=== PATIENT | female | born 1990 | race Two or more races ===

== ENCOUNTER 2024-10-03 21:30 | Emergency (ER) | payer MEDICAID, SELFPAY ==
[2024-10-03 21:31] VITALS: BMI 31.8
[2024-10-03 22:07] VITALS: BP 110/75; PULSE 73; RESP 20; TEMP 37.3; O2SAT 98
--- NOTE | 2024-10-03 22:13 | XR_ITS ---
Examination: Abdomen sonogram, Limited Date and time of exam: October 03, 2024 10:39 PM INDICATIONS: Abdominal pain beginning this morning Technique: Real-time carrillo scale transabdominal sonographic images of the upper abdomen obtained. Findings: Absent gallbladder Normal common bile duct 0.3 cm Pancreatic head 1.9 cm Liver 14.9 cm no focal liver lesions Normal hepatopedal portal venous flow Patent IVC IMPRESSION: Normal common bile duct Normal liver
--- NOTE | 2024-10-03 22:13 | PD.EDRME ---
Rapid Medical Screening Exam E Arrival date/time: 10/03/24 21:30 this is a 34-year-old female that comes in with complaints of sudden abdominal pain to the right upper quadrant patient states she was recently eating healthy because she was told her cholesterol was over 450 and her triglycerides were very elevated. Patient was told by her primary provider that if she started having bad abdominal pain that she needed to come to the emergency room. Patient states that she just finished eating at a buffet. Patient states she got a sudden onset of abdominal pain. Patient also complains of nausea no vomiting. Patient denies diarrhea. Patient also complains of abdominal cramping. Patient's last menstrual period was September 28, 2024. Patient has a history of gallstones I have greeted and performed a focused initial assessment of this patient. Initial appropriate labs ordered at this time. A comprehensive ED assessment and evaluation of the patient and analysis of all test and completion of medical decision making process will be conducted by additional ED provider. Chief Complaint: Abdominal Pain Time Seen by Provider: 10/03/24 22:08 Vital signs: Vital Signs Temperature 99.2 F 10/03/24 22:07 Pulse Rate 73 10/03/24 22:07 Respiratory Rate 20 10/03/24 22:07 Blood Pressure 110/75 10/03/24 22:07 Pulse Oximetry (%) 98 10/03/24 22:07 Oxygen Delivery Method Room Air 10/03/24 22:07
[2024-10-03 22:45] LABS: Collection Type, Urine Voided
[2024-10-03 22:50] LABS: Basophils # (Auto) 0.1 Thou/mm3 (0.0-0.2); Basophils % (Auto) 1 % (0-2.5); Eosinophils # (Auto) 0.3 Thou/mm3 (0.0-0.5); Eosinophils % (Auto) 4 % (0-10); Hematocrit 39.1 % (36.0-46.0); Hemoglobin 13.1 g/dL (12.0-16.0); Immature Granulocytes % (Auto) 0 % (0-0); Immature Granulocytes Auto 0.02 Thou/mm3 (0.00-0.00); Lymphocytes # (Auto) 2.2 Thou/mm3 (1.0-4.8); Lymphocytes % (Auto) 29 % (10-50); Mean Corpuscular HGB Conc 33.5 g/dl (31.0-37.0); Mean Corpuscular Volume 87 fL (80-100); Monocytes # (Auto) 0.5 Thou/mm3 (0.0-0.8); Monocytes % (Auto) 7 % (0-12); Neutrophils # (Auto) 4.6 Thou/mm3 (1.8-7.7); Neutrophils % (Auto) 59 % (37-80); Nucleated Red Blood Cell % 0 /100 WBC (0); Platelet Count 197 Thou/mm3 (140-440); Red Blood Count 4.52 Miln/mm3 (4.00-5.20); White Blood Count 7.8 Thou/mm3 (3.6-11.0)
--- NOTE | 2024-10-03 22:50 | XR_ITS ---
Examination: CT abdomen and pelvis without contrast. Coronal 3-D reconstructions. Sagittal 2-D reconstructions. Date and time of exam:2024, 12:59 AM Comparison April 19, 2020 INDICATIONS: right flank pain beginning today CTDI: vol (mGy): 9 DLP: (mGycm): 474 Technique: Axial images of the abdomen have been obtained, 3 mm slice thickness Intravenous contrast material has not been administered. Low dose protocols were performed. One or more of the following dose reduction techniques were used; automated exposure control, adjustment of the mA and/or KV according to patient size, use of iterative reconstruction technique. Findings: No focal liver or splenic lesions Absent gallbladder No renal or ureteral calculi, no hydronephrosis Fat-containing umbilical hernia. Normal appendix. No bladder mass or bladder calculi Intact osseous structures IMPRESSION: No renal or ureteral calculi Normal appendix No bladder mass or bladder calculi
[2024-10-03 22:57] LABS: Bacteria,Urine Rare; Bilirubin,Urine Negative (Negative); Blood,Urine 2+ (Negative); Clarity,Urine Turbid (Clear/Hazy); Color,Urine Yellow (Lt Yel-Yel); Culture Indicated,Urine Not Indicated; Glucose, Urine Negative (Negative); Ketones,Urine Trace (Negative); Leukocyte Esterase,Urine Negative (Negative); Nitrite,Urine Negative (Negative); PH,Urine 7.5 (5.0-7.0); Protein,Urine 1+ (Neg - Trace); RBC,Urine 110 /hpf (0-3); Specific Gravity,Urine 1.038 (1.001-1.035); Squamous Epithelial Cell,Urine 8 /hpf (0-5); WBC,Urine 7 /hpf (0-5)
[2024-10-03 23:05] LABS: HCG,Qualitative Serum Negative
[2024-10-03 23:06] LABS: Alanine Aminotransferase 68 U/L (10-49); Albumin, Serum 4.8 gm/dL (3.5-5.0); Albumin/Globulin Ratio 1.8 (1.2-2.2); Alkaline Phosphatase 94 U/L (46-116); Anion Gap 10 (7-16); BUN/Creatinine Ratio 10 Ratio (12-20); Bilirubin,Total 0.4 mg/dL (0.3-1.2); Blood Urea Nitrogen 9 mg/dL (9-23); Calcium 9.6 mg/dL (8.3-10.6); Calcium (Corrected) 9.6 mg/dL (8.5-10.1); Carbon Dioxide 26.9 mMol/L (20.0-31.0); Chloride 106 mMol/L (98-107); Creatinine (Component) 0.9 mg/dL (0.6-1.3); Estimated Creatinine Clearance 77.6 mL/min (>60); Globulin 2.6 gm/dL (2.3-3.5); Glucose 96 mg/dL (74-106); Lipase 50 U/L (12-53); Osmolality,Calculated 283 (275-295); Potassium 4.8 mMol/L (3.4-5.1); Sodium 143 mMol/L (136-145); Total Protein 7.4 gm/dL (5.7-8.2); eGFR > 60 See Note
[2024-10-03 23:22] LABS: Amylase 94 U/L (30-118); Bilirubin,Direct 0.1 mg/dL (0.0-0.3); Magnesium 2.4 mg/dL (1.6-2.6)
--- NOTE | 2024-10-03 23:23 | PC.NURSE ---
pt wants to hold of on moprhine and try toradol first
[2024-10-03] MEDS: KETOROLAC INJ 30 MG/ML VIAL IVP (23:29)
[2024-10-03] MEDS: ONDANSETRON INJ 2 MG/ML INJ 2 ML 4 MG IVP (23:29)
[2024-10-03] MEDS: SODIUM CHLORIDE 0.9% 1000 ML 1,000 ML 999 ML IV (23:29)
--- NOTE | 2024-10-04 00:50 | PD.EDABDPN ---
ED Abdominal Pain RME/HPI General Chief Complaint: Abdominal Pain Stated complaint: ABDOMINAL PAIN Time seen by provider: 10/03/24 22:08 Arrival date/time: 10/03/24 21:30 RME / HPI RME / HPI narrative: 10/03/24 21:30 this is a 34-year-old female that comes in with complaints of sudden abdominal pain to the right upper quadrant patient states she was recently eating healthy because she was told her cholesterol was over 450 and her triglycerides were very elevated. Patient was told by her primary provider that if she started having bad abdominal pain that she needed to come to the emergency room. Patient states that she just finished eating at a buffet. Patient states she got a sudden onset of abdominal pain. Patient also complains of nausea no vomiting. Patient denies diarrhea. Patient also complains of abdominal cramping. Patient's last menstrual period was September 28, 2024. Patient has a history of gallstones I have greeted and performed a focused initial assessment of this patient. Initial appropriate labs ordered at this time. A comprehensive ED assessment and evaluation of the patient and analysis of all test and completion of medical decision making process will be conducted by additional ED provider. This section includes all my notes and documentations, including HPI, PE, and ED course. Cyril Montgomery MD HPI: 34 y/o female with a couple day history of upper abdominal pain. With nausea. No fever. No other complaints. ROS: All negative except as documented in HPI. Physical Exam: General: Alert and oriented. Appears uncomfortable. Eyes: Conjunctivae and lids clear. ENT: No nasal congestion. Neck: Supple. Heart: RRR. Lungs: No respiratory distress. Good air movement. No rhonchi, wheezing, rales. Abdomen: Soft with upper quadrant tenderness. Normal bowel sounds. No distension. No rebound or guarding. Back: No CVA tenderness. Skin: Warm and dry. Neuro: Alert and oriented X 3. I reviewed all diagnostic test results: My review of the US report is: NAD. My review of the abdominal CT report is: NAD. Blood tests unremarkable. UA showed RBC and WBC and bacteria. At this point, diagnoses include: Stomach ulcer, UTI. Treatment here included: IV fluid, Toradol, Morphine, Zofran, Rocephin, famotidine and Protonix. Significant improvement noted. Recommended more outpatient care. Based on my best medical judgment, made decision no further evaluation or treatment indicated at this time. Patient understands and agrees to the discharge instructions customized and printed, see below. Discharge instructions from Dr. Montgomery: ?After evaluation, your symptoms are due to stomach ulcer and urine infection. See attached handouts. ?To help heal the ulcer, take Omeprazole 40 mg every morning and Famotidine 40 mg at bedtime for a week then as needed. ?Zofran for nausea/vomiting.? Clear liquid diet for 24 hours.? Then slowly advance diet as tolerated. ?Avoid food and beverages that can trigger and worsen ulcers.? As instructed in the handout. --Take cefdinir for your urine infection. For good hydration, increase oral fluid and maintain clear urine. If dark or yellow, increase oral fluid. ?See a private doctor on 10/07/2024 for recheck and further care. Ask to review all test results and official radiology reports, to make sure you receive all necessary follow-ups and monitoring, including final urine culture results from today. To make sure there is no serious intra-abdominal condition, ask for help with more investigation not available here in the ER.? Such as EGD or scoping the stomach, colonoscopy or scoping the colon, and referral to see furniture fabricator. ?Seek immediate medical care with worsening or with any concerns. Cyril Montgomery MD Related Data Previous Rx's ?Medication ?Instructions ?Recorded triamcinolone acetonide 0.025 % 1 applic topical BID PRN rash #15 04/23/20 topical ointment grams hydrocodone 5 mg-acetaminophen 325 1 tab PO Q6H PRN pain (scale score 07/21/22 mg tablet 7-10) #20 tabs sennosides 8.6 mg capsule (senna) 8.6 mg PO QDAY PRN constipation 07/21/22 #30 caps ursodiol 300 mg capsule 300 mg PO BID #60 caps 07/21/22 ondansetron 4 mg disintegrating 4 mg PO Q8H PRN nausea and 09/07/23 tablet vomiting #30 tabs cefdinir 300 mg capsule 300 mg PO BID #14 caps 10/04/24 famotidine 40 mg tablet 40 mg PO .bedtime #30 tabs 10/04/24 omeprazole 40 mg capsule,delayed 40 mg PO QDAY #30 caps 10/04/24 release ondansetron 4 mg disintegrating 4 mg PO TID PRN nausea and 10/04/24 tablet vomiting 30 days #10 tabs Allergies Allergy/AdvReac Type Severity Reaction Status Date / Time No Known Allergies Allergy Verified 07/20/22 18:03 Review of Systems Review of Systems Systems Reviewed: All systems reviewed, normal except as documented Past Medical History Past Medical History GASTROINTESTINAL: Positive Gall Bladder Disease REPRODUCTIVE: Positive Previous Pregnancies Surgical History SURGICAL: Positive Section ED Exam Narrative Physical exam: Refer to HPI Course Quality Measures none Orders Category Date Time Status Saline [Insert IV] NOW Care 10/03/24 22:[address] abdomen pelvis wo con Stat Exams 10/03/24 22:50 Taken US abdomen limited Stat Exams 10/03/24 22:13 Completed Amylase Stat Lab 10/03/24 22:25 Completed Bilirubin,Direct Stat Lab 10/03/24 22:25 Completed CBC Stat Lab 10/03/24 22:25 Completed Comprehensive Metabolic Panel Stat Lab 10/03/24 22:25 Completed HCG,Qualitative Serum Stat Lab 10/03/24 22:25 Completed Lipase Stat Lab 10/03/24 22:25 Completed Magnesium Stat Lab 10/03/24 22:25 Completed Urinalysis, C/S if Indicated Stat Lab 10/03/24 22:41 Completed Ketorolac Inj [Toradol Inj] Med 10/03/24 22:49 Discontinued 30 mg IVP X1 ONE Morphine Inj Med 10/03/24 22:49 Discontinued 4 mg IVP X1 ONE Ondansetron Inj [Zofran Inj] Med 10/03/24 22:49 Discontinued 4 mg IVP X1 ONE Sodium Chloride 0.9% 1000 ml [Ns] 1,000 ml Med 10/03/24 22:49 Discontinued IV 999 mls/hr cefTRIAXone/D5w 1gm IV premix [Rocephin/D5w 1gm IV Med 10/04/24 02:16 Active premix] 1 gm in 50 ml IV X1 Vital Signs Vital signs: Vital Signs Temperature 99.2 F 10/03/24 22:07 Pulse Rate 73 10/03/24 22:07 Respiratory Rate 20 10/03/24 22:07 Blood Pressure 110/75 10/03/24 22:07 Pulse Oximetry (%) 98 10/03/24 22:07 Oxygen Delivery Method Room Air 10/03/24 22:07 Abdominal Pain MDM MDM Narrative MDM Narrative:: Scribe Attestation: I, Saadia Vasquez, am scribing for and in the presence of Dr. Montgomery. Provider Notation: Although this document has been carefully reviewed, there may still be some phonetic and other typographical errors.? These errors are purely grammatical due to imperfections in the software program and should not be construed in any way to? compromise the substance of the patient's medical care during this visit. 34 y/o female with Hx of Gall Bladder Disease and SHx of section presents c/o sudden RUQ abdominal pain, cramping, and nausea x few hours. LMP was 09/28/2024. Denies any vomiting or diarrhea. No other complaints. Patient data External records reviewed:: [facility] previous records (Reviewed prior ED records from 09/08/23. Patient was seen for Gastroenteritis.) Clinical information provided by:: patient Social determinants that could affect healthcare access:: none Patient has the following chronic illnesses:: Gall Bladder Disease How is presenting disease/condition affected by chronic disease/condition?: exacerbated by Evaluation data The following diagnostics were reviewed and interpreted by me:: lab results and radiology exam(s) Lab and/or radiology exams considered but not ordered:: None Interpretation Summary: I reviewed all diagnostic test results: My review of the US report is: NAD. My review of the abdominal CT report is: NAD. Blood tests unremarkable. UA showed RBC and WBC and bacteria. Medications / Prescriptions Medications or Prescriptions considered but not ordered:: None Medication administrations:: Medication Administration History Ceftriaxone Sodium/Dextrose (Rocephin/D5w 1gm Iv Premix) 1 gm in 50 mls @ 100 mls/hr IV X1 ONE Stop: 10/04/24 02:45 Last Admin: 10/04/24 02:39 Dose: 100 mls/hr Documented By: AARON Discontinued Medications Sodium Chloride (Ns) 1,000 mls @ 999 mls/hr IV .Q1H1M ONE Stop: 10/03/24 23:49 Last Infusion: 10/04/24 01:09 Dose: Infused Documented By: Admin: 10/03/24 23:29 Dose: 999 mls/hr Documented By: BD Ketorolac Tromethamine (Ketorolac Inj 30 Mg/Ml Vial) 30 mg IVP X1 ONE Stop: 10/03/24 22:50 Last Admin: 10/03/24 23:29 Dose: 30 mg Documented By: BD Morphine Sulfate (Morphine Sulf Inj 10 Mg/Ml Vial) 4 mg IVP X1 ONE Stop: 10/03/24 22:50 Ondansetron HCl (Ondansetron Inj 2 Mg/Ml Inj 2 Ml) 4 mg IVP X1 ONE; Protocol Stop: 10/03/24 22:50 Last Admin: 10/03/24 23:29 Dose: 4 mg Documented By: BD IV fluid, Toradol, Morphine, Zofran, Rocephin, famotidine, and Protonix Consultations Consultation(s) initiated? (list below): No Diagnosis Differential diagnosis abdominal pain: abdominal pain, acute appendicitis, calculus of kidney, constipation, diverticulitis, endometriosis, gastroenteritis, pancreatitis and small bowel obstruction Most likely diagnosis given after review of the tests above:: Stomach ulcer, UTI Admission Indicated Admission indicated?: not indicated Explain why admission is indicated or not indicated:: With significant improvement, there was no indication for admission. Admission Request Was there a request for admission?: No Disposition Plan Disposition Plan: Discharge Discharge Attestation Discharge Attestation: The patient and all family members were given an opportunity to ask questions and understood the discharge instructions. Discharge instructions specifically effects, indications for sooner follow up or return to the emergency department, and the expected course of current diagnosis. Patient condition: Stable Discharge Plan Plan Patient Disposition: HOME (Self Care) Prescriptions/Referrals Prescriptions/Med Rec: New famotidine 40 mg tablet 40 mg PO .bedtime Qty: 30 0RF omeprazole 40 mg capsule,delayed release(DR/EC) 40 mg PO QDAY Qty: 30 0RF ondansetron 4 mg tablet,disintegrating 4 mg PO TID PRN (Reason: nausea and vomiting) 30 Days Qty: 10 0RF cefdinir 300 mg capsule 300 mg PO BID Qty: 14 0RF No Action triamcinolone acetonide 0.025 % ointment 1 applic topical BID PRN (Reason: rash) Qty: 15 1RF ursodiol 300 mg capsule 300 mg PO BID Qty: 60 0RF senna 8.6 mg capsule 8.6 mg PO QDAY PRN (Reason: constipation) Qty: 30 0RF hydrocodone-acetaminophen 5-325 mg tablet 1 tab PO Q6H MDD 20mg PRN (Reason: pain (scale score 7-10)) Qty: 20 0RF ondansetron 4 mg tablet,disintegrating 4 mg PO Q8H PRN (Reason: nausea and vomiting) Qty: 30 0RF Referrals: Jaden Mckeon MD [Primary Care Provider] - In 1 week Problem List Clinical Impression: Stomach ulcer, UTI (urinary tract infection) Patient/Caregiver Discharge Instructions Discharge Activity: activity as tolerated Education Materials: ED Gastritis (Adult), ED CYSTITIS Female Adult Additional Instructions: Discharge instructions from Dr. Montgomery: ?After evaluation, your symptoms are due to stomach ulcer and urine infection. See attached handouts. ?To help heal the ulcer, take Omeprazole 40 mg every morning and Famotidine 40 mg at bedtime for a week then as needed. ?Zofran for nausea/vomiting.? Clear liquid diet for 24 hours.? Then slowly advance diet as tolerated. ?Avoid food and beverages that can trigger and worsen ulcers.? As instructed in the handout. --Take cefdinir for your urine infection. For good hydration, increase oral fluid and maintain clear urine. If dark or yellow, increase oral fluid. ?See a private doctor on 10/07/2024 for recheck and further care. Ask to review all test results and official radiology reports, to make sure you receive all necessary follow-ups and monitoring, including final urine culture results from today. To make sure there is no serious intra-abdominal condition, ask for help with more investigation not available here in the ER.? Such as EGD or scoping the stomach, colonoscopy or scoping the colon, and referral to see furniture fabricator. ?Seek immediate medical care with worsening or with any concerns. Instrucciones de ariel del Dr. Montgomery: ?Despu?s de la evaluaci?n, shilpa s?ntomas se deben a laura ?lcera estomacal e infecci?n urinaria. Consulte los folletos adjuntos. ?Para ayudar a cicatrizar la ?lcera, tome omeprazol 40 mg todas las ma?anas y famotidina 40 mg antes de acostarse alina laura semana y, posteriormente, seg?n sea necesario. ?Zofran para las n?useas y los v?mitos. Dieta l?quida alina 24 horas. Luego, aumente gradualmente la dieta seg?n la tolerancia. ?Evite alimentos y bebidas que puedan desencadenar y empeorar las ?lceras. Seg?n las instrucciones del folleto. ?Tunis cefdinir para la infecci?n urinaria. Para laura buena hidrataci?n, aumente la ingesta de l?quidos y mantenga la orina sukh. Si la orina es oscura o amarilla, aumente la ingesta de l?quidos. ?Consulte con un m?dico particular el 03/04/2025 para laura nueva revisi?n y atenci?n adicional. Solicite la revisi?n de todos los resultados de las pruebas y los informes radiol?gicos oficiales para asegurarse de recibir todos los controles y monitoreos necesarios, incluidos los resultados finales del urocultivo de hoy. Para asegurarse de que no haya laura afecci?n intraabdominal grave, solicite ayuda con otras pruebas que no est?n disponibles en urgencias, liam laura endoscopia estomacal (EGD) o laura endoscopia g?strica, laura colonoscopia o laura endoscopia de colon, y derivaci?n a un gastroenter?logo. ?Busque atenci?n m?dica inmediata si presenta empeoramiento o si tiene alguna inquietud. Print Language: Yoruba Stand Alone Forms: [employer] Award Info., Patient Portal Info Letter
--- NOTE | 2024-10-04 01:57 | PRELIM_ITS ---
CT scan of the abdomen and pelvis without intravenous contrast (axial sections with sagittal and coronal reformats) October 04, 2024 at 0059 hours Clinical History: Right flank pain. Comparison: None available at the time of this report. Findings: The lung bases are clear. The liver, pancreas, spleen, kidneys and adrenals are unremarkable on this noncontrast study. S/p cholecystectomy. No evidence of bowel obstruction. The appendix is within normal limits. There is no mesenteric or retroperitoneal adenopathy. The urinary bladder is unremarkable. There is no free fluid or free air. The osseous structures are unremarkable. Fat-containing umbilical hernia without evidence of inflammation. The uterus and ovaries are within normal limits. Impression: No evidence of acute intra-abdominal or pelvic pathology. No evidence of kidney or ureteral stones. Report Electronically Signed By: Ant Dorado 10/04/2024 1:56:49 AM [EST]
[2024-10-04] MEDS: cefTRIAXone/D5w 1gm IV premix 1 GM/50 ML BAG IV (02:39)
== END 2024-10-04 03:00 | disposition home or self-care (01) ==
PROVIDERS: Nurse Practitioner Family; Emergency Provider Emergency Medicine; PCP Family Medicine
DX: K25.9 Gastric ulcer, unspecified as acute or chronic, without hemorrhage or perforation (principal); N39.0 Urinary tract infection, site not specified
CPT/HCPCS: 36415; 74176; 76705; 80053; 81001; 81025; 82150; 82248; 83690; 83735; 84703; 85025; 96361; 96365; 96366; 96375; 99284; J0696; J1885; J2405; J7030